=== PATIENT | female | born 1965 | race Caucasian/White ===

== ENCOUNTER → 2016-08-01 17:10 | Outpatient (CLI) | payer SELFPAY ==
[2009-09-22 11:15] VITALS: BMI 29.7
== END | disposition home or self-care (01) ==
LOC: D.MAMMO 07-31 10:30 → D.US 07-31 13:00 → D.MAMMO 13:30
DX: N64.4 Mastodynia (principal)

== ENCOUNTER → 2018-08-21 08:00 | Outpatient (CLI) | payer SELFPAY ==
[2009-09-22 11:15] VITALS: BMI 29.7
== END | disposition home or self-care (01) ==
LOC: D.MAMMO 08-04 13:30
PROVIDERS: ATTEND Family Medicine
DX: N64.4 Mastodynia (principal)

== ENCOUNTER → 2020-10-12 13:40 | Outpatient (CLI) | payer SELFPAY ==
[2009-09-22 11:15] VITALS: BMI 29.7
== END | disposition home or self-care (01) ==
LOC: D.MAMMO 13:00
PROVIDERS: ATTEND Family Medicine
DX: Z12.31 Encounter for screening mammogram for malignant neoplasm of breast (principal)